=== PATIENT | female | born 1960 | race Caucasian/White ===

== ENCOUNTER → 2016-11-12 | Outpatient (CLI) | payer BC ==
--- NOTE | 2016-11-12 17:09 | PCVCIMAG ---
APPROVED REPORT Study performed: 11/12/2016 14:58:56 EXAM: Comprehensive 2D, Doppler, and color-flow Echocardiogram Patient Location: Echo lab Status: routine BSA: 1.70 HR: 79 bpmBP: 122/80 mmHg Rhythm: LBBB Other Information Study Quality: Adequate Risk Factors: Cardiac Risk Factors: Hyperlipidemia, HTN Indications Murmur #21 BioProsthetic Aortic Valve (01/2015) Coarctation Repair (1977) 2D Dimensions LVEF(%): 62.85 (>50%) IVSd: 9.96 (7-11mm)LVOT Diam: 21.00 (18-24mm) LVDd: 48.53 mm PWd: 8.88 (7-11mm)Ascending Ao: 28.63 (22-36mm) LVDs: 32.01 (25-40mm) Left Atrium: 32.41 (27-40mm) Aortic Root: 26.91 mm LV Single Plane 4CH: 69.35 % LV Single Plane 2CH: 60.00 %Viera's LVEF: 64.68 % Biplane EF: 62.4 % Volumes Left Atrial Volume (Systole) Single Plane 4CH: 36.40 mLSingle Plane 2CH: 45.91 mL LA ESV Index: 25.00 mL/m2 Aortic Valve AoV Peak Alejandro.: 3.57 m/s AO Peak Gr.: 50.94 mmHgLVOT Max P.23 mmHg AO Mean Gr.: 30.88 mmHgLVOT Mean P.65 mmHg AO V2 Mean: 2.62 m/sLVOT Max V: 1.11 m/s AO V2 VTI: 75.20 cmLVOT Mean V: 0.78 m/s WELLINGTON (VTI): 0.81 [id number] V1 VTI: 18.31 cm WE[place]INGTON Vmax: 1.04 cm2 SV (LVOT): 61.12 mL Mitral Valve E/A Ratio: 0.9 MV Decel. Time: 212.50 ms MV E Max Alejandro.: 0.80 m/s MV A Alejandro.: 0.93 m/s IVRT: 69.20 ms TDI E/Lateral E': 10.00E/Medial E': 13.33 Medial E' Alejandro.: 0.06 m/s Lateral E' Alejandro.: 0.08 m/s Pulmonary Valve PV Peak Alejandro.: 0.83 m/sPV Peak Gr.: 2.78 mmHg Tricuspid Valve RAP Estimate: 7.00 mmHg Left Ventricle The left ventricle is normal size. There is normal LV segmental wall motion. There is normal left ventricular wall thickness. Left ventricular systolic function is normal. The left ventricular ejection fraction is within the normal range. LVEF is 55-60%. Transmitral Doppler flow pattern suggests impaired LV relaxation. Right Ventricle The right ventricle is normal size. The right ventricular systolic function is normal. Atria The left atrium size is normal. Possible atrial septal aneurysm. The right atrium size is normal. Aortic Valve Bioprosthetic aortic valve is present. No aortic regurgitation is present. Peak aortic valve gradient is 51 mmHg. Mean aortic valve gradient is 31 mmHg. Aortic Valve Area 1.2 cm2. Mitral Valve Mild mitral annular calcification. Moderate mitral regurgitation. No evidence of mitral valve stenosis. Tricuspid Valve The tricuspid valve is normal in structure. There is no tricuspid valve regurgitation noted. Pulmonic Valve The pulmonary valve is normal in structure. Trace pulmonic regurgitation. Great Vessels The aortic root is normal in size. IVC is normal in size and collapses with >50% inspiration. Pericardium There is no pericardial effusion. <Conclusion> The left ventricle is normal size. LVEF is 55-60%. Transmitral Doppler flow pattern suggests impaired LV relaxation. The right ventricle is normal size. The left atrium size is normal. Peak aortic valve gradient is 51 mmHg. Mean aortic valve gradient is 31 mmHg. Aortic Valve Area 1.2 cm2. Moderate mitral regurgitation. There is no tricuspid valve regurgitation noted. There is no pericardial effusion.
== END | disposition home or self-care (01) ==
LOC: PCVCIMAG 14:08
PROVIDERS: ATTEND Internal Medicine Cardiovascular Disease
DX: I34.0 Nonrheumatic mitral (valve) insufficiency (principal); I37.1 Nonrheumatic pulmonary valve insufficiency; I44.7 Left bundle-branch block, unspecified; I48.0 Paroxysmal atrial fibrillation; Q25.1 Coarctation of aorta; I10 Essential (primary) hypertension; E78.00 Pure hypercholesterolemia, unspecified; Z90.49 Acquired absence of other specified parts of digestive tract; Z79.82 Long term (current) use of aspirin; Z88.0 Allergy status to penicillin; Z91.048 Other nonmedicinal substance allergy status
CPT/HCPCS: 80061; 93005; 93306; G0463

== ENCOUNTER → 2018-02-03 | Outpatient (CLI) | payer BC ==
--- NOTE | 2018-02-03 16:36 | PCVCIMAG ---
APPROVED REPORT Study performed: 02/03/2018 13:30:51 EXAM: Comprehensive 2D, Doppler, and color-flow Echocardiogram Patient Location: Echo lab Room #: 2Status: routine BSA: 1.69 HR: 72 bpmBP: 126/78 mmHg Rhythm: NSR Other Information Study Quality: Good Risk Factors: Cardiac Risk Factors: HTN Indications Aortic Valve Disease AVR #21 BIOPROSTHETIC 2D Dimensions IVSd: 6.67 (7-11mm)LVOT Diam: 20.78 (18-24mm) LVDd: 57.13 mm PWd: 8.09 (7-11mm)Ascending Ao: 24.91 (22-36mm) LVDs: 36.93 (25-40mm) Left Atrium: 32.04 (27-40mm) Aortic Root: 22.71 mm LV Single Plane 4CH: 53.99 % LV Single Plane 2CH: 51.08 % Biplane EF: 53.0 % Volumes Left Atrial Volume (Systole) Single Plane 4CH: 41.52 mLSingle Plane 2CH: 43.63 mL Biplane LA Volume: 44.00 mLLA ESV Index: 26.00 mL/m2 Aortic Valve AoV Peak Alejandro.: 3.44 m/s AO Peak Gr.: 52.30 mmHgLVOT Max P.30 mmHg AO Mean Gr.: 30.04 mmHgLVOT Mean P.06 mmHg AO V2 Mean: 2.64 m/sLVOT Max V: 1.05 m/s AO V2 VTI: 87.55 cmLVOT Mean V: 0.85 m/s WELLINGTON (VTI): 0.95 [id number] V1 VTI: 24.57 cm WE[place] Vmax: 1.04 cm2 SV (LVOT): 83.24 mL Mitral Valve E/A Ratio: 1.1 MV Decel. Time: 119.64 ms MV E Max Alejandro.: 0.95 m/s MV A Alejandro.: 0.85 m/s IVRT: 121.11 ms TDI E/Lateral E': 7.92E/Medial E': 11.88 Medial E' Alejandro.: 0.08 m/s Lateral E' Alejandro.: 0.12 m/s Pulmonary Valve PV Peak Alejandro.: 0.67 m/sPV Peak Gr.: 1.81 mmHg Pulmonary Vein P Vein S: 0.49 m/sP Vein A: 0.39 m/s P Vein D: 0.47 m/sP Vein A Dur.: 107.3 msec P Vein S/D Ratio: 1.04 Tricuspid Valve TR Peak Alejandro.: 2.03 m/s TR Peak Gr.: 16.50 mmHg TV Vmax: 0.85 m/sPA Pressure: 24.00 mmHg Left Ventricle Left ventricle is at the upper limits of normal. There is normal LV segmental wall motion. There is normal left ventricular wall thickness. Left ventricular systolic function is normal. The left ventricular ejection fraction is within the normal range. LVEF is 50-55%. The left ventricular diastolic function is normal. Right Ventricle The right ventricle is normal size. The right ventricular systolic function is normal. Atria The left atrium size is normal. The right atrium size is normal. Aortic Valve Prosthetic aortic valve is seen Bioprosthetic aortic valve is present. Prosthetic aortic valve opening is mildly decreased. No aortic regurgitation is present. Moderate aortic stenosis. Peak aortic valve gradient [id number]. Highest mean aortic valve gradient is 30_mmHg. Calculated WELLINGTON by the continuity equation is1.0_cm2. Mitral Valve The mitral valve is normal in structure. Mild to moderate mitral regurgitation. No evidence of mitral valve stenosis. Tricuspid Valve The tricuspid valve is normal in structure. There is no tricuspid valve regurgitation noted. Pulmonic Valve The pulmonary valve is normal in structure. There is no pulmonic valvular regurgitation. Great Vessels The aortic root is normal in size. The ascending aorta is normal in size. IVC is normal in size and collapses >50% with inspiration. Pericardium There is no pericardial effusion. There is no pleural effusion. <Conclusion> Left ventricle is at the upper limits of normal. Left ventricular systolic function is normal. The left ventricular ejection fraction is within the normal range. LVEF is 50-55%. The left ventricular diastolic function is normal. The right ventricle is normal size. The left atrium size is normal. Prosthetic aortic valve is seen Bioprosthetic aortic valve is present. Prosthetic aortic valve opening is mildly decreased. Moderate aortic stenosis. Peak aortic valve gradient [id number]. Highest mean aortic valve gradient is 30_mmHg. Calculated WELL[place] by the continuity equation is1.0_cm2. Mild to moderate mitral regurgitation. There is no tricuspid valve regurgitation noted. The aortic root is normal in size. There is no pericardial effusion.
== END | disposition home or self-care (01) ==
LOC: PCVCIMAG 13:35
PROVIDERS: ATTEND Internal Medicine Cardiovascular Disease
DX: I34.0 Nonrheumatic mitral (valve) insufficiency (principal); R01.1 Cardiac murmur, unspecified; I10 Essential (primary) hypertension; I44.7 Left bundle-branch block, unspecified; I35.8 Other nonrheumatic aortic valve disorders
CPT/HCPCS: 93306

== ENCOUNTER → 2019-02-09 | Outpatient (CLI) | payer BC ==
--- NOTE | 2019-02-09 16:32 | PCVCIMAG ---
APPROVED REPORT Study performed: 02/09/2019 13:59:21 EXAM: Comprehensive 2D, Doppler, and color-flow Echocardiogram Patient Location: Echo lab Status: routine BSA: 1.69 HR: 74 bpmBP: 128/70 mmHg Rhythm: NSR Other Information Study Quality: Good Risk Factors: Cardiac Risk Factors: HTN, Hyperlipidemia Indications #21 Bioprosthestic Aortic Valve 2D Dimensions IVSd: 12.46 (7-11mm)LVOT Diam: 20.23 (18-24mm) LVDd: 47.51 mm PWd: 12.47 (7-11mm)Ascending Ao: 29.28 (22-36mm) LVDs: 29.31 (25-40mm) Left Atrium: 29.98 (27-40mm) Aortic Root: 27.75 mm LV Single Plane 4CH: 50.48 % Volumes Left Atrial Volume (Systole) Single Plane 4CH: 42.70 mLSingle Plane 2CH: 49.29 mL LA ESV Index: 28.00 mL/m2 Aortic Valve AoV Peak Alejandro.: 4.35 m/s AO Peak Gr.: 75.53 mmHgLVOT Max P.42 mmHg AO Mean Gr.: 39.29 mmHgLVOT Mean P.08 mmHg AO V2 Mean: 2.94 m/sLVOT Max V: 1.16 m/s AO V2 VTI: 86.73 cmLVOT Mean V: 0.82 m/s WELL[place] (VTI): 0.86 [id number] V1 VTI: 23.15 cm [place] Vmax: 0.86 cm2 SV (LVOT): 74.34 mL Mitral Valve E/A Ratio: 1.0 MV Decel. Time: 148.90 ms MV E Max Alejandro.: 0.98 m/s MV A Alejandro.: 0.95 m/s TDI E/Lateral E': 8.17E/Medial E': 12.25 Medial E' Alejandro.: 0.08 m/s Lateral E' Alejandro.: 0.12 m/s Pulmonary Valve PV Peak Gr.: 1.86 mmHg Pulmonary Vein P Vein S: 0.60 m/sP Vein A: 0.39 m/s P Vein D: 0.65 m/sP Vein A Dur.: 110.7 msec P Vein S/D Ratio: 0.92 Tricuspid Valve TR Peak Alejandro.: 2.65 m/s TR Peak Gr.: 28.06 mmHg Left Ventricle The left ventricle is normal size. There is normal LV segmental wall motion. There is normal left ventricular wall thickness. Left ventricular systolic function is normal. The left ventricular ejection fraction is within the normal range. LVEF is 55-60%. Grade I - abnormal relaxation pattern. Right Ventricle The right ventricle is normal size. The right ventricular systolic function is normal. Atria The left atrium size is normal. The right atrium size is normal. Aortic Valve Bioprosthestic aortic valve replacement. No aortic regurgitation is present. Peak Aortic gradient is 66mmHg. Mean gradient is 45mmHg. Calculated aortic valve area is .9cm2. . Mitral Valve The mitral valve is normal in structure. Mild to moderate mitral regurgitation. No evidence of mitral valve stenosis. Tricuspid Valve The tricuspid valve is normal in structure. Trace tricuspid regurgitation. Pulmonary artery pressure is 35mmHg. Pulmonic Valve The pulmonary valve is normal in structure. There is no pulmonic valvular regurgitation. Great Vessels The aortic root is normal in size. IVC is normal in size and collapses >50% with inspiration. Pericardium There is no pericardial effusion. <Conclusion> The left ventricle is normal size. LVEF is 55-60%. Grade I - abnormal relaxation pattern. The right ventricle is normal size. The left atrium size is normal. Bioprosthestic aortic valve replacement. Peak Aortic gradient is 66mmHg. Mean gradient is 45mmHg. Calculated aortic valve area is .9cm2. . Mild to moderate mitral regurgitation. Trace tricuspid regurgitation. Pulmonary artery pressure is 35mmHg. The aortic root is normal in size. There is no pericardial effusion.
== END | disposition home or self-care (01) ==
LOC: PCVCIMAG 13:43
PROVIDERS: ATTEND Internal Medicine Cardiovascular Disease
DX: I08.0 Rheumatic disorders of both mitral and aortic valves (principal); I44.7 Left bundle-branch block, unspecified; I10 Essential (primary) hypertension; E78.00 Pure hypercholesterolemia, unspecified; E78.5 Hyperlipidemia, unspecified; I48.0 Paroxysmal atrial fibrillation; Z95.2 Presence of prosthetic heart valve; Z79.82 Long term (current) use of aspirin; Z88.0 Allergy status to penicillin; Z88.8 Allergy status to other drugs, medicaments and biological substances
CPT/HCPCS: 93306